=== PATIENT | female | born 1975 ===

== ENCOUNTER 2018-04-12 09:04 | Emergency (ER) | payer OTHER ==
[2018-04-12 09:16] VITALS: PULSE 78; RESP 18; O2SAT 98
--- NOTE | 2018-04-12 10:28 | C.PDOC ---
History Of Present Illness 43 year old female presents to the ED complaining of lower back pain that began 4 days ago and has been worsening since then. 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 Denies any rash, extremity weakness or numbness, incontinence, urinary symptoms, abdominal pain, or any other complaints. Denies any falls or trauma. Time Seen by Provider: 04/12/18 10:10 Chief Complaint (Nursing): Back Pain History Per: Patient History/Exam Limitations: no limitations Onset/Duration Of Symptoms: Days (4) Current Symptoms Are (Timing): Still Present Quality Of Discomfort: "Pain" Associated Symptoms: None Past Medical History Reviewed: Historical Data, Nursing Documentation, Vital Signs Vital Signs: Last Vital Signs Temp 98.9 F 04/12/18 09:12 Pulse 78 04/12/18 09:12 Resp 18 04/12/18 09:12 BP 118/69 04/12/18 09:12 Pulse Ox 98 04/12/18 09:12 - Medical History PMH: Asthma Surgical History: No Surg Hx Family History: States: No Known Family Hx - Social History Hx Alcohol Use: No Hx Substance Use: No - Immunization History Hx Tetanus Toxoid Vaccination: No Hx Influenza Vaccination: No Hx Pneumococcal Vaccination: Yes Review Of Systems Except As Marked, All Systems Reviewed And Found Negative. Gastrointestinal: Negative for: Abdominal Pain Genitourinary: Negative for: Dysuria, Frequency, Incontinence, Hematuria Musculoskeletal: Positive for: Back Pain Skin: Negative for: Rash Neurological: Negative for: Weakness, Numbness Physical Exam - Physical Exam Appears: Non-toxic Skin: Warm, Dry, No Rash Head: Normacephalic Eye(s): bilateral: Normal Inspection Nose: Normal Oral Mucosa: Moist Neck: Supple Chest: Symmetrical Cardiovascular: Rhythm Regular Respiratory: Normal Breath Sounds, No Rales, No Rhonchi, No Wheezing Gastrointestinal/Abdominal: Soft, No Tenderness Back: No CVA Tenderness, Other (tenderness to lower back radiating to left buttock ) Extremity: Normal ROM Extremity: Bilateral: Atraumatic, Normal Color And Temperature, Normal ROM Neurological/Psych: Oriented x3, Normal Speech, Normal Motor, Normal Sensation, Normal Reflexes Gait: Steady ED Course And Treatment O2 Sat by Pulse Oximetry: 98 (RA) Pulse Ox Interpretation: Normal Medical Decision Making Medical Decision Making: Plan - Decadron 10mg IVP - Flexeril 10mg PO - Toradol 30mg IVP On re-examination, patient is resting comfortably in no acute distress. Patient reports improvement of symptoms. Patient given follow up instructions. Instructed to return to ER if symptoms worsen or new symptoms arise. Disposition Counseled Patient/Family Regarding: Studies Performed, Diagnosis, Need For Followup, Rx Given - Disposition Referrals: Benito Mittal [Staff Provider] - Disposition: HOME/ ROUTINE Disposition Time: 10:48 Condition: STABLE Additional Instructions: FOLLOW UP WITH PMD ON FRIDAY FOR RE-EVALUATION. IF SYMPTOMS GET WORSE, URINARY /BOWEL INCONTINENCE OR LEG WEAKNESS OR NUMBNESS DEVELOP RETURN TO ED. Prescriptions: Cyclobenzaprine [Cyclobenzaprine HCl] 1 tab PO HS PRN #20 tab PRN Reason: Pain, Moderate (4-7) Naproxen [Naprosyn] 1 tab PO BID PRN #20 tab PRN Reason: Pain Instructions: Low Back Pain (DC) Forms: [facility] (Maltese), General Discharge Instructions - Clinical Impression Clinical Impression: Back pain - PA / [employer] ADJUSTER / Resident Statement MD/DO has reviewed & agrees with the documentation as recorded. - Scribe Statement The provider has reviewed the documentation as recorded by the [place] All medical record entries made by the Aniya were at my direction and personally dictated by me. I have reviewed the chart and agree that the record accurately reflects my personal performance of the history, physical exam, medical decision making, and the department course for this patient. I have also personally directed, reviewed, and agree with the discharge instructions and disposition.
[2018-04-12 11:06] VITALS: BP 116/79; TEMP 98
== END 2018-04-12 11:06 | disposition home or self-care (01) ==
LOC: C.ER 09:04
DX: M54.5 Low back pain (principal)
CPT/HCPCS: 96374; 96375; 99284; J1100; J1885